=== PATIENT | female | born 1985 | race African-American/Black ===

== ENCOUNTER 2022-07-22 00:07 | Emergency (ER) | payer SELFPAY ==
[~2022-07-22] VITALS: Ht 167.6 cm; Wt 114.0 kg
[2022-07-22 00:29] VITALS: BP 190/99
[2022-07-22] MEDS ORDERED: OFLO5DRO3 LEFTEYE (01:30)
[2022-07-22] MEDS ORDERED: AZIT250T MT (01:30)
[2022-07-22] MEDS ORDERED: BENZ1LOZ73 MT (01:30)
[2022-07-22] MEDS ORDERED: BENZ200C52 PO (01:30)
== END 2022-07-22 02:19 | disposition home or self-care (01) ==
LOC: ER 00:07
DX: H10.9 Unspecified conjunctivitis (principal); J98.8 Other specified respiratory disorders; Z79.899 Other long term (current) drug therapy
CPT/HCPCS: 99281